=== PATIENT | male | born 1980 | race Caucasian/White ===

== ENCOUNTER 2021-06-26 23:28 | Emergency (ER) | payer OTHER ==
[2021-06-27 00:30] LABS: CORONAVIRUS COVID-19 NAA POSITIVE (NEGATIVE); INFLUENZA A NAA NEGATIVE (NEGATIVE); INFLUENZA B NAA NEGATIVE (NEGATIVE)
== END 2021-06-27 01:03 | disposition home or self-care (01) ==
LOC: MW.ED 23:28
DX: U07.1 COVID-19 (principal)
CPT/HCPCS: 0240U; 93005; 99285-25